=== PATIENT | female | born 1995 | race Caucasian/White ===

== ENCOUNTER 2023-07-21 09:57 | Outpatient (AMB) | payer OTHER, SELFPAY ==
[2023-07-21 10:01] VITALS: BP 118/68; PULSE 76; O2SAT 97; BMI 29.3
--- NOTE | 2023-07-21 10:01 | A.OFFPC_ITS ---
Vital Signs 07/21/23 10:01 Height 5 ft 5 in Weight 176 lb 6 oz BMI 29.3 BP 118/68 Blood Pressure Location Lt brachial Position Sitting Pulse 76 Pulse Source Pulse Oximeter Pulse Oximetry (%) 97 Oxygen Delivery Method Room Air Intake Visit Reasons: [employer]/Requesting PE Intake Note: Patient is a new patient, and is complaining of migraines today, to the point of vomiting. She states it started after her . Is last menstrual period known: Yes Last menstrual period: 07/12/23 Allergies No Known Allergies Allergy (Verified 07/21/23 10:06) Tobacco use date assessed: 07/21/23 Dental Screening Dental Screen Date: 07/21/23 Did you have a dental visit in the last 12 months?: Yes Did you have a dental problem in the last 6 months where you did not have access to dental care?: No Was dental information given to patient?: Patient has dentist HPI [employer]/Requesting PE HPI Details New patient Prior PCP:?Does not recall, in [place] Last office visit/CPE: 2015 Acute issue(s): Migraines -Started after delivery, Augus t 2021 -Has been taking excedrin but sometimes provides her no relief. -Notes migraines comes on suddenly. -Usually happens all around her period. -Happens twice a month Chest Pain -Happens under a lot of stress or when s he first wakes up -Pain lasts for about 3 minutes. Does no t exercise but keeps herself active at work. -Denies any chest pain on exertion. PMHx: Migraines SurgHx: , [place] tooth FHx: Mom: CVA at 45, HLD, HTN. Dad: HTN, HLD, CAD & Stents. pGM: Breast Cancer. SocHx: No cigarettes. EtOH Special occasions. No drugs. 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 If so, by whom?: No Do you feel safe in your current relationship?: Yes Is there a partner from a previous relationship who is making you feel unsafe now?: No Are you made to feel afraid or neglected: No Special radhames needs: No service: No Current occupational status: employed Current occupation: Activities. Cognitive needs: No Hearing needs: No Vision needs: No Female Reproductive History Menstrual Date of last menstrual period: 07/12/23 Questionnaire PHQ-9 Over the last 2 weeks, how often have you been bothered by any of the following problems? 1. Little interest or pleasure in doing things: not at all 2. Feeling down, depressed, or hopeless: several days 3. Trouble falling or staying asleep, or sleeping too much: not at all 4. Feeling tired or having little energy: more than half the days 5. Poor appetite or overeating: several days 6. Feeling bad about yourself - or that you are a failure or have let yourself or your family down: several days 7. Trouble concentrating on things, such as reading the newspaper or watching television: nearly every day 8. Moving or speaking so slowly that other people could have noticed. Or the opposite - being so fidgety or restless that you have been moving around a lot more than usual: not at all 9. Thoughts that you would be better off or of hurting yourself in some way: not at all Total score: 8 Depression Screening Interpretation: Positive Depression Screening Done: Yes [id number] - PHQ-9 Billing: Yes Source: Developed by Drs. Leobardo Riddle, Haily Patel, Kolton Paige and colleagues, with an educational ruby from [employer]. Thrive Questionnaire Date Thrive assessed: 07/21/23 I am a: Patient What is your living situation today?: I have a steady place to live Within the past 12 months, did the food you bought not last and you didn't have the money to get more?: Never true Within the past 12 months, did you worry whether your food would run out before you got money to buy more?: Never true Do you have trouble paying for medicines?: Yes Do you have trouble getting transportation to medical appointments?: No Do you have trouble paying your heating and electricity bill?: No Do you have trouble taking care of your child, family member or friend?: No Do you have trouble with day-to-day activities such as bathing, preparing meals, shopping, managing finances, etc.?: No Are you currently unemployed and looking for a job?: No Are you interested in more education?: Yes AUDIT C Alcohol Use Questionnaire (AUDIT-C) 1. How often do you have a drink containing alcohol?: Never 2. How many drinks containing alcohol do you have on a typical day when you are drinking?: 1 or 2 3. How often do you have six or more drinks on one occasion?: Never Total Score: 0 BAILEY-7 AMB Questionnaire BAILEY-7 Date BAILEY - 7 assessed: 07/21/23 Feeling nervous, anxious, or on edge: 3 = Nearly every day Not being able to stop or control worryin = Nearly every day Worrying too much about different things: 3 = Nearly every day Trouble relaxin = Not at all Being so restless that it is hard to sit still: 3 = Nearly every day Becoming easily annoyed or irritable: 1 = Several days Feeling afraid as if something awful might happen: 0 = Not at all Total BAILEY-7 score (0-4 normal; 5-9 mild; 10-14 moderate; 15-21 severe): 13 Source: Developed by Drs. Leobardo Riddle, Haily Patel, Kolton Paige and colleagues, with an educational ruby from [employer]. BAILEY-7 Assessment Billing BAILEY-7 Assessment Tool: BAILEY-7 Assessment 03656 Review of Systems Const Denies chills, Denies fatigue, Denies fever(s) and Denies weakness ENT Denies dizziness Card Denies dyspnea Resp Denies cough, Denies dyspnea, Denies wheezing and Denies other (shortness of breath) Musc Denies numbness and Denies tingling Neuro Denies dizziness, Denies numbness, Denies tingling and Denies weakness Psych Reports anxiety Endo Denies fatigue Aller/Immun Denies wheezing Physical exam (Primary Care) Vital Signs: Last Vital Signs Pulse 76 07/21/23 10:01 BP 118/68 07/21/23 10:01 Pulse Ox 97 07/21/23 10:01 Oxygen Delivery Method Room Air 07/21/23 10:01 BMI result Body Mass Index 29.3 Tobacco/Smoking Status: Tobacco use Status Tobacco use date assessed 07/21/23 07/21/23 10:22 Patient Tobacco Use Status Never used Tobacco 07/21/23 10:22 e-Cigarette/Vaping Use Never Used 07/21/23 10:22 Depression Screening Interpretation: Positive Const General: well developed; No acute distress Nutritional Appearance: well nourished Orientation/consciousness: patient oriented x3 HENMT Head: Yes normocephalic and Yes atraumatic Eyes General: appearance normal, both eyes and all related structures Pupils: Equal, round and reactive pupils present EOM: EOMs intact bilaterally Resp Effort & Inspection: normal respiratory effort Auscultation: clear to auscultation bilaterally Cardio Rate: regular rate Rhythm: regular rhythm Heart sounds: S1 normal heart sound present, S2 normal heart sound present, no gallops, no murmurs and no rubs Neuro General: patient oriented x3 and gait normal Cranial nerves: Yes CN's II-XII intact bilaterally and Yes Equal, round and reac tive pupils present Psych Affect: normal affect Assessment and Plan Assessment & Plan (1) Migraines: Code(s): G43.909 - Migraine, unspecified, not intractable, without status migrainosus Plan: Migraines?about?twice?a?month.?? Trial?sumatriptan (2) Chest pain: Code(s): R07.9 - Chest pain, unspecified Plan: She?notes?brief?episodes?of?chest?pain?not?associated?with?exertion EKG: ?Sinus?bradycardia?with?sinus?arrhythmia. Normal?axis,?no?hypertrophy,?no?ischemia?or?infarction. Patient?d oes?have?some?anxiety?and?her?chest?discomfort?does?not?appear?to?be?cardiac?rel ated. (3) Anxiety: Code(s): F41.9 - Anxiety disorder, unspecified Plan: Patient?appears?stable?today.??Will?address?further?at?her?next?visit. (4) Laboratory exam ordered as part of routine general medical examination: Code(s): Z00.00 - Encounter for general adult medical examination without abnormal findings Plan: Check?lab Orders: Orders Complete Blood Count Auto Diff Today Z00.00 - Encounter for general adult medical examination without abnormal findings Microalbumin, Random (w Creat) Today I10 - Essential (primary) hypertension UA and rflx microscopic Today Z00.00 - Encounter for general adult medical examination without abnormal findings TSH reflex Free T4 Today Z00.00 - Encounter for general adult medical examination without abnormal findings Vitamin B12 and Folate Today E53.8 - Deficiency of other specified B group vitamins CT NG by PCR Today Z11.3 - Encounter for screening for infections with a predominantly sexual mode of transmission Comprehensive [place]. Panel Fast Today Z00.00 - Encounter for general adult medical examination without abnormal findings Lipid Panel Today Z00.00 - Encounter for general adult medical examination without abnormal findings Erythrocyte Sedimentation Rate Today G43.909 - Migraine, unspecified, not intractable, without status migrainosus CRP High Sensitivity Today G43.909 - Migraine, unspecified, not intractable, without status migrainosus HIV Ab/Ag Today Z11.3 - Encounter for screening for infections with a predominantly sexual mode of transmission Hepatitis B,C Profile Today Z11.3 - Encounter for screening for infections with a predominantly sexual mode of transmission Syphilis Screen Today Z11.3 - Encounter for screening for infections with a predominantly sexual mode of transmission Coding Level of Care Code New Pt Level 3 (26038) Diagnoses Migraines G43.909 Chest pain R07.9 Anxiety F41.9 Laboratory exam ordered as part of routine general medical examination Z00.00 Additional Codes BAILEY-7 Assessment Billing - BAILEY-7 Assessment Tool: BAILEY-7 Assessment [id number] ([id number])
== END 2023-07-21 11:27 | disposition home or self-care (01) ==
PROVIDERS: PCP Family Medicine; Visit Provider Family Medicine
DX: G43.909 Migraine, unspecified, not intractable, without status migrainosus (principal); R07.9 Chest pain, unspecified; F41.9 Anxiety disorder, unspecified
CPT/HCPCS: 93000; 99203

== ENCOUNTER 2023-07-21 11:37 | Outpatient (REF) | payer OTHER, SELFPAY ==
[2023-07-21 14:23] LABS: MANUAL DIFF FLAG NO
[2023-07-21 14:25] LABS: Appearance Urine Turbid; Color Urine Yellow; Glucose Urine UA Negative (Negative); Leukocyte Esterase Urine Trace (Negative); Nitrite Urine Negative (Negative); PH 5.5 (5.0-9.0); Specific Gravity - Urine 1.025 (1.005-1.025); UMIC TRIGGER UA YES; Urine Blood Moderate (2+) (Negative); Urine Ketones Trace mg/dL (Negative); Urine Protein Negative (Neg-Trace)
[2023-07-21 14:30] LABS: Bacteria Urine None Seen (None Seen); Hyaline Casts Urine 0-2 /LPF (0-2); WBC Urine 0-5 /HPF (0-5)
[2023-07-21 14:32] LABS: Basophils Absolute Auto 0.1 X10*3/uL (0.0-0.2); Basophils Percent Auto 0.6 % (0-2); Eosinophils Absolute Auto 0.2 X10*3/uL (0.0-0.4); Eosinophils Percent Auto 1.9 % (0-4); Hematocrit 40.5 % (37.0-47.0); Hemoglobin 13.6 g/dl (12.0-16.0); Imm Gran Abs Auto 0.04 X10*3/uL (0.00-0.03); Imm Gran Pct Auto 0.5 % (0.0-0.4); Lymphocytes Absolute Auto 1.3 X10*3/uL (1.2-4.9); Mean Corpuscular HGB Conc 33.6 g/dl (31.0-35.0); Mean Corpuscular Hemoglobin 29.1 pg (27.0-33.0); Mean Corpuscular Volume 86.5 fL (80.0-98.0); Mean Platelet Volume 10.8 fL (9.4-12.3); Monocytes Absolute Auto 0.6 X10*3/uL (0.1-1.2); Monocytes Percent Auto 6.6 % (2-11); Neutrophils Absolute Auto 6.2 x10*3/uL (2.0-8.3); Neutrophils Percent Auto 74.4 % (45-73); Platelet Count 206 X10*3/uL (160-400); Red Blood Count 4.68 X10*6/uL (4.20-5.50); Red Cell Distribution Width 12.4 % (11.0-16.0); White Blood Count 8.3 X10*3/uL (4.8-10.8)
[2023-07-21 14:48] LABS: Alanine Aminotransferase 9 U/L (0-31); Albumin Level 4.7 g/dL (3.5-5.0); Alkaline Phosphatase 62 U/L (39-117); Anion Gap 12 (12-20); Aspartate Amino Transferase 15 U/L (5-31); Blood Urea Nitrogen 10 mg/dL (9-16); Calcium 9.4 mg/dL (8.4-10.2); Carbon Dioxide 25 mmol/L (22-29); Chloride 107 mmol/L (96-108); Cholesterol 169 mg/dL (<200); Estimated Glomerular Filt Rate > 60; Glucose Fasting 91 mg/dL (60-99); HDL Cholesterol 37 mg/dL (>40); LDL Cholesterol Calculated 109 mg/dL (<100); Potassium 3.9 mmol/L (3.3-5.1); Sodium 140 mmol/L (135-145); Total Protein 7.7 g/dL (6.5-8.0); Triglycerides 119 mg/dL (<150)
[2023-07-21 15:04] LABS: Creatinine Urine 287.99 mg/dL; Microalbum/Creatinine Ratio Ur 11.1 ug/mg cr (<30)
[2023-07-21 15:06] LABS: TSH reflex Free T4 1.01 uIU/mL (0.32-4.0)
[2023-07-21 15:07] LABS: Folate 6.2 ng/mL (> or = 4.0); Vitamin B12 463 pg/mL (200-900)
[2023-07-21 15:21] LABS: Erythrocyte Sedimentation Rate 4 MM/HR (0-20)
[2023-07-22 08:12] LABS: HBS Num1 1.12 mIU/mL (0-7.99); HBc Num1 0.12 S/CO (0.00-0.79); HBsAGNum1 0.31 S/CO (0.00-0.99); HIV AB/AG Nonreactive (Nonreactive); HIV Num 1 0.05 S/CO (0.00-0.99); Hepatitis B Core Antibody Nonreactive (Nonreactive); Hepatitis B Surface Antigen Negative (Negative); ~HepC Num1 0.09 S/CO (0.00-0.79); ~Hepatitis B Surface Antibody NONREACTIVE (Nonreactive); ~Hepatitis C Antibody Nonreactive (Nonreactive)
[2023-07-22 08:23] LABS: Syphilis Screen Nonreactive (Nonreactive)
[2023-07-23 17:03] LABS: CRP High Sensitivity 1.5 mg/L
== END 2023-07-21 11:38 | disposition home or self-care (01) ==
LOC: HO.WFDLDS 11:37
PROVIDERS: Visit Provider Family Medicine
DX: Z00.00 Encounter for general adult medical examination without abnormal findings (principal); Z11.4 Encounter for screening for human immunodeficiency virus [HIV]; I10 Essential (primary) hypertension; E53.8 Deficiency of other specified B group vitamins; G43.909 Migraine, unspecified, not intractable, without status migrainosus; Z20.2 Contact with and (suspected) exposure to infections with a predominantly sexual mode of transmission
CPT/HCPCS: 36415; 80053; 80061; 81001; 82043; 82570; 82607; 82746; 84443; 85025; 85652; 86141; 86704; 86706; 86780; 86803; 87340; 87389

== ENCOUNTER → 2024-08-20 09:12 | Outpatient (BNV) | payer MEDICAID, SELFPAY | PROVIDERS: Emergency Provider Emergency Medicine; Visit Provider Internal Medicine Cardiovascular Disease | DX: R94.31 Abnormal electrocardiogram [ECG] [EKG] (principal) | CPT/HCPCS: 93010 ==